=== PATIENT | male | born 1980 | race Caucasian/White ===

== ENCOUNTER 2017-03-03 22:11 | Emergency (ER) | payer MEDICAID ==
[2017-03-03 22:33] VITALS: BP 137/91; PULSE 93; RESP 16; TEMP 97.2; O2SAT 96
[2017-03-03] MEDS ORDERED: traMADol 50 MG TAB PO ONE (22:38)
[2017-03-03] MEDS ORDERED: ACETAMINOPHEN 500 MG TAB PO ONE (22:38)
[2017-03-03] MEDS ORDERED: IBUPROFEN 600 MG TAB PO ONE (22:38)
--- NOTE | 2017-03-03 22:42 | EDPHY ---
H & P Time Seen by Provider: 03/03/17 22:27 HPI/ROS: This patient reports gradual onset of right foot pain plantar aspect over the past 24 hours that is worse when he bears weight. He describes the pain as achy in nature, sharp with weight-bearing with no antecedent injury. 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 He thinks this is gout but has no pain at the 1st metatarsophalangeal joint, only plantar pain. He tried Tylenol yesterday and [id number] alba pills without improvement. He reports compliance with his allopurinol for recurrent gout. No other exacerbating or alleviating factors. He has no other musculoskeletal complaints. ROS: Constitutional: No fevers Neuro: No numbness tingling Musculoskeletal: No acute trauma. No swelling to the foot Integumentary: No skin rash 5 point ROS is otherwise negative. Past Medical/Surgical History: Gout. Otherwise healthy Smoking Status: Heavy smoker Physical Exam: Physical Exam Vital signs are normal. General: No acute distress Eyes: Pupils equal and react to light. Extraocular motions are intact. Lungs: No respiratory distress. Cardiac: Brisk capillary refill is intact throughout. Pulses are 2+ and symmetric in the affected extremity. Extremities: Atraumatic normal except for right foot Right foot: Patient has tenderness plantar aspect of foot toward the calcaneus that reproduces his symptoms without any associated swelling, ecchymosis, skin changes or other findings. He has no pain swelling or tenderness at the 1st metatarsophalangeal joint and no ankle swelling or tenderness. Skin: No rash or pallor. Neuro: Alert with no sensorimotor deficits. Initial differential diagnosis: Plantar fasciitis, foot strain, foot contusion Constitutional: Initial Vital Signs Temperature (C) 36.2 C 03/03/17 22:29 Heart Rate 93 03/03/17 22:29 Respiratory Rate 16 03/03/17 22:29 Blood Pressure 137/91 H 03/03/17 22:29 O2 Sat (%) 96 03/03/17 22:29 O2 Delivery Mode Room Air Allergies/Adverse Reactions: No Allergies [NKDA] Allergy (Verified 03/03/17 22:27) Home Medications: Medication Instructions Recorded Allopurinol [Allopurinol 100 MG 03/03/17 (*)] Ibuprofen [Motrin (*)] 600 mg PO Q6 PRN #30 tab 03/03/17 traMADol [Ultram 50 mg (*)] 50 - 100 mg PO Q4 PRN #20 tab 03/03/17 MDM/Departure - [facility] Medications Given: Discontinued Medications Acetaminophen (Tylenol) 1,000 mg PO EDNOW ONE Stop: 03/03/17 22:39 Last Admin: 03/03/17 22:43 Dose: 1,000 mg Ibuprofen (Motrin) 600 mg PO EDNOW ONE Stop: 03/03/17 22:39 Last Admin: 03/03/17 22:44 Dose: 600 mg Tramadol HCl (Ultram) 50 mg PO EDNOW ONE Stop: 03/03/17 22:39 Last Admin: 03/03/17 22:44 Dose: 50 mg ED Course/Re-evaluation: Given social history, location of pain and physical findings, presentation is most consistent with plantar fasciitis. I counseled the patient regarding this. No clinical evidence to suggest ankle pathology or gouty flare. He is treated with ibuprofen, Tylenol and tramadol. I counseled him regarding plantar fasciitis. He understands the need to return for further evaluation should he have any worsening of symptoms despite the treatment plan. Otherwise he will follow up with Dr. Salas-[facility] - Depart Disposition: Home, Routine, Self-Care Clinical Impression: Plantar fasciitis of right foot Condition: Good Instructions: Plantar Fasciitis (ED), Plantar Fasciitis Exercises (ED) Additional Instructions: Diagnosis: Plantar fasciitis Plan: Ibuprofen and Tylenol for pain Take the ibuprofen regularly until symptoms resolve Tramadol in addition if needed for pain that prevents sleep. No driving, alcohol work on tramadol. Adjust her foot wear, try heel lifts, inserts and different shoes with good arch support. Try to limit the time on your feet on hard surfaces until symptoms improve. Follow up with the [facility] if your symptoms are not improving with treatment plan over the next week or so. Prescriptions: Ibuprofen [Motrin (*)] 600 mg PO Q6 PRN #30 tab PRN Reason: Pain traMADol [Ultram 50 mg (*)] 50 - 100 mg PO Q4 PRN #20 tab PRN Reason: breakthrough pain Referrals: Gi Knowles MD [Primary Care Provider] - As per Instructions Judy Salas [Doctor of Podiatric Medicine] - As per Instructions
== END 2017-03-03 22:51 | disposition home or self-care (01) ==
LOC: CED 22:11
DX: M72.2 Plantar fascial fibromatosis (principal); F17.200 Nicotine dependence, unspecified, uncomplicated

== ENCOUNTER 2017-04-08 08:51 | Emergency (ER) | payer MEDICAID ==
[2017-04-08 09:03] VITALS: BP 129/90; PULSE 80; RESP 18; TEMP 97.5; O2SAT 95
--- NOTE | 2017-04-08 09:31 | EDPHY ---
H & P Stated Complaint: "base of skull to lower back with L hip pain" since yesterday after waking Time Seen by Provider: 04/08/17 08:59 HPI/ROS: Chief Complaint: Back pain HPI: 37-year-old male with a history of back pain in the past woke 3 days ago with back pain from the base physical down to his hip. Pain in the left hand side. Does do a lot of heavy lifting a 50 lb sacs at work. No numbness or weakness. No difficulty urinating or having a bowel movement. Is ambulating without difficulty. Has been taking ibuprofen without any significant relief. ROS: 10 point Review of Systems is negative except as noted in the HPI. PMH: Denies Social History: No smoking Family History: non-contributory Physical Exam: Gen: Awake, Alert, No Distress HEENT: Nose: no rhinorrhea Eyes: PERRLA, EOMI Mouth: Moist mucosa Neck: Supple, no JVD Chest: nontender, lungs clear to auscultation Heart: S1, S2 normal, no murmur Abd: Soft, non-tender, no guarding Back: no CVA tenderness, no midline tenderness Ext: no edema, non-tender Skin: no rash Neuro: CN II-XII intact, Sensation grossly intact, Strength 5/5 in bilateral upper and lower extremities - Personal History Current Tetanus/Diphtheria Vaccine: Yes Tetanus Vaccine Date: <3 yrs - Medical/Surgical History Hx Asthma: No Hx Chronic Respiratory Disease: No Hx Diabetes: No Hx Cardiac Disease: No Hx Renal Disease: No Hx Cirrhosis: No Hx Alcoholism: No Hx HIV/AIDS: No Hx Splenectomy or Spleen Trauma: No Other PMH: KNEE SURG, 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 APPY, TESTICULAR RETRIEVAL, GOUT - Social History Smoking Status: Current every day smoker Constitutional: Initial Vital Signs Temperature (C) 36.4 C 04/08/17 08:59 Heart Rate 80 04/08/17 08:59 Respiratory Rate 18 04/08/17 08:59 Blood Pressure 129/90 H 04/08/17 08:59 O2 Sat (%) 95 04/08/17 08:59 O2 Delivery Mode Room Air Allergies/Adverse Reactions: No Allergies [NKDA] Allergy (Verified 03/03/17 22:27) Home Medications: Medication Instructions Recorded lamOTRIGine 10/30/17 Medical Decision Making ED Course/Re-evaluation: 37-year-old male with exacerbation of back pain. He has no neurologic red flags concerning for acute spinal injury or infection. I have advised nonsteroidals, ice and back exercises. He will follow up with primary care physician, return for worsening. Departure - Departure Disposition: Home, Routine, Self-Care Clinical Impression: Back pain Condition: Good Instructions: Back Pain (ED), Lower Back Exercises (ED) Additional Instructions: Take ibuprofen, 600 mg 3 times a day. You may add acetaminophen to the ibuprofen according [id number] instructions. Apply ice for 15 minutes every 2-3 hours while awake. Is important to stay active and mobile, do not rest your back. Follow up with primary care physician in 3-4 days for further evaluation. Referrals: Gi Knowles MD [Primary Care Provider] - As per Instructions
== END 2017-04-08 09:53 | disposition home or self-care (01) ==
LOC: CED 08:51
DX: M54.9 Dorsalgia, unspecified (principal); F17.200 Nicotine dependence, unspecified, uncomplicated

== ENCOUNTER 2017-06-07 19:35 | Emergency (ER) | payer MEDICAID ==
[2017-06-07 19:45] VITALS: BP 141/95; PULSE 97; RESP 16; TEMP 98.2; O2SAT 98
--- NOTE | 2017-06-07 19:53 | EDPHY ---
H & P Stated Complaint: Chronic back pain-worse one week, all way down back. Time Seen by Provider: 06/07/17 19:42 HPI/ROS: CHIEF COMPLAINT: Back pain HISTORY OF PRESENT ILLNESS: The patient is a 37-year-old man with a history of several years chronic back pain. He had cervical spine fusion several years ago with [facility]. He states that over the last couple of days he has had increasing pain and spasming all the way from his tailbone up to the base of his skull primarily on the right side of his back. He denies pain over the spine. No fevers. No trauma. No paresthesias numbness or weakness. No bowel or bladder abnormalities. He is able to ambulate but states that he is having trouble sleeping. He also states that the pain was so bad it took his breath away several times today at work when he was trying to lift. He does wear a back brace. REVIEW OF SYSTEMS: Constitutional: denies: chills, fever, recent illness, recent injury EENTM: denies: blurred vision, double vision, nose congestion Respiratory: denies: cough, shortness of breath Cardiac: denies: chest pain, irregular heart rate, lightheadedness, palpitations Gastrointestinal/Abdominal: denies: abdominal pain, diarrhea, nausea, vomiting, blood streaked stools Genitourinary: denies: dysuria, frequency, hematuria, pain Musculoskeletal: See HPI Skin: denies: lesions, rash, jaundice, bruising Neurological: denies: headache, numbness, paresthesia, tingling, dizziness, weakness Hematologic/Lymphatic: denies: blood clots, easy bleeding, easy bruising Immunologic/allergic: denies: HIV/AIDS, transplant EXAM: GENERAL: Well-appearing, well-nourished and in no acute distress. HEAD: Atraumatic, normocephalic. EYES: Pupils equal round and reactive to light, extraocular movements intact, sclera anicteric, conjunctiva are normal. ENT: TMs normal, nares patent, oropharynx clear without exudates. Moist mucous membranes. NECK: Normal range of motion, supple without lymphadenopathy or JVD. LUNGS: Breath sounds clear to auscultation bilaterally and equal. No wheezes rales or rhonchi. HEART: Regular rate and rhythm without murmurs, rubs or gallops. ABDOMEN: Soft, nontender, normoactive bowel sounds. No guarding, no rebound. No masses appreciated. BACK: Pain to right paraspinous muscles, no tenderness, no deformities, no erythema, No CVA tenderness, no spinal tenderness, step-offs or deformities EXTREMITIES: Normal range of motion, no pitting or edema. No clubbing or cyanosis. NEUROLOGICAL: Cranial nerves II through XII grossly intact. Normal speech, normal gait. 5/5 strength, normal movement in all extremities, normal sensation PSYCH: Normal mood, normal affect. SKIN: Warm, dry, normal turgor, no visible rashes or lesions. 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 APPY, TESTICULAR RETRIEVAL, GOUT - Family History Significant Family History: No pertinent family hx - Social History Smoking Status: Current every day smoker Alcohol Use: Sober Drug Use: None Constitutional: Initial Vital Signs Temperature (C) 36.8 C 06/07/17 19:42 Heart Rate 97 06/07/17 19:42 Respiratory Rate 16 06/07/17 19:42 Blood Pressure 141/95 H 06/07/17 19:42 O2 Sat (%) 98 06/07/17 19:42 O2 Delivery Mode Room Air Allergies/Adverse Reactions: No Allergies [NKDA] Allergy (Verified 06/07/17 19:45) Home Medications: Medication Instructions Recorded lamOTRIGine 04/08/17 Metaxalone [Skelaxin 800 mg (*)] 800 mg PO TID PRN #12 tab 06/07/17 Medical Decision Making ED Course/Re-evaluation: The patient declines imaging. He has not had any trauma. No fevers. No neurologic deficits on exam or by complaint. He is complaining primarily right paraspinous muscle pain and thinks that the the as muscle spasms. He is requesting a muscle relaxant. He states that he has taken Flexeril without relief. He also states he has taken Tylenol and ibuprofen he used back creams and he hot and cold compresses without success. We discussed are no narcotic policy. We discussed options. He states lidocaine patch is not worked for him either. He would like to try Skelaxin. I will write in a prescription for this and refer him back to the neurosurgeon. He states that he has not seen them in several years. I was able to observe the patient ambulate without any distress at all here in the emergency department in even get in and out of his car without difficulty. Differential Diagnosis: Partial list of the Differential diagnosis considered include but were not limited to; muscle spasm, chronic pain, radiculopathy, medication abuse and although unlikely based on the history and physical exam, I also considered diskitis, tumor, cord compression, fracture. I discussed these differential diagnoses and the plan with the patient as well as the usual and expected course. The patient understands that the diagnosis is provisional and that in medicine we are not always correct and that further workup is often warranted. Usual and customary warnings were given. All of the patient's questions were answered. The patient was instructed to return to the emergency department should the symptoms at all worsen or return, otherwise to followup with the physician as we discussed. Departure - Departure Disposition: Home, Routine, Self-Care Clinical Impression: Chronic back pain Qualifiers: Back pain location: low back pain Back pain laterality: right Sciatica presence : with sciatica Sciatica laterality: sciatica of right side Qualified Code(s): M54.41 - Lumbago with sciatica, right side; G89.29 - Other chronic pain; G89.29 - Other chronic pain Condition: Fair Instructions: Chronic Back Pain (ED) Referrals: Gi Knowles MD [Primary Care Provider] - As per Instructions Juwan Tony MD [Medical Doctor] - As per Instructions Prescriptions: Metaxalone [Skelaxin 800 mg (*)] 800 mg PO TID PRN #12 tab PRN Reason: Spasms
== END 2017-06-07 20:00 | disposition home or self-care (01) ==
LOC: CED 19:35
DX: M54.41 Lumbago with sciatica, right side (principal); G89.29 Other chronic pain; F17.200 Nicotine dependence, unspecified, uncomplicated